=== PATIENT | female | born 1995 | race Caucasian/White ===

== ENCOUNTER 2017-11-08 01:29 | Emergency (ER) | payer OTHER ==
[2017-11-08 02:22] LABS: CONTROL LINE UCG INT CTR LINE PRESENT; URINE PREG TEST NEGATIVE (NEGATIVE)
[2017-11-08 02:30] LABS: KETONE, URINE AUTO RFX NEGATIVE (NEGATIVE); LEUKOCYTE ESTERASE UR AUTO RFX NEGATIVE (NEGATIVE); NITRITE, URINE AUTO RFX NEGATIVE (NEGATIVE); RBC, URINE AUTO RFX 2 /HPF (0-3); SPECIFIC GRAVITY UR AUTO RFX 1.002 (1.002-1.035); SQUAM EPITHELIAL CELL UR AURFX 1 /HPF (0-6); WBC, URINE AUTO RFX 1 /HPF (0-3)
[2017-11-08] MEDS: cefTRIAXone SOD 250 MG VIAL (J0696) IM ×2 (07:00)
[2017-11-08] MEDS: AZITHROMYCIN 250 MG TAB PO ×2 (07:00)
[2017-11-08 07:35] LABS: CHLAMYDIA DNA AMPLIFICATION NEGATIVE (NEGATIVE); GC DNA AMPLIFICATION NEGATIVE (NEGATIVE)
== END 2017-11-08 07:04 | disposition home or self-care (01) ==
LOC: M ED 01:29
DX: N72 Inflammatory disease of cervix uteri (principal)
CPT/HCPCS: J0696